=== PATIENT | female | born 1945 | race Caucasian/White ===

== ENCOUNTER → 2016-06-17 | Day surgery (SDC) | payer MEDICARE ==
[~2016-06-17] MED LIST: ACETAMINOPHEN/HYDROcodone 325 MG/5 MG TAB ONE; BACITRACIN IM FOR SOLN 50,000 UNIT VIAL ONE; BUPIVACAINE/EPINEPHRINE 0.25% PF 30 ML VIAL ONE; GENTAMICIN SULFATE 80 MG/2 ML VIAL ONE; KETOROLAC TROMETHAMINE 30 MG/ML (IVP) VIAL IV PUSH ONE; LACTATED RINGER'S 1000 ML INJ 1,000 ML ONE; MEPERIDINE HCL 25 MG/ML VIAL ONE; MIDAZOLAM HCL 2 MG/2 ML VIAL ONE; ONDANSETRON HCL 4 MG/2 ML VIAL IV PUSH ONE; PROPOFOL 200 MG/20 ML AMP IV ONE; SODIUM CHLOR 0.9% 250 ML INJ 250 ML IV ONE; SODIUM CHLORIDE 0.9% 20 ML VIAL ONE; VANCOMYCIN HCL 1000 MG VIAL ONE; ceFAZolin 2 GM PREMIX 50 ML ONE; ceFAZolin INJ 1,000 MG VIAL ONE
--- NOTE | 2016-06-17 10:19 | TN ---
cc: SO[facility] DATE OF SURGERY 06/17/2016 PREOPERATIVE DIAGNOSIS Right knee medial compartment osteoarthritis, chondromalacia patella. POSTOPERATIVE DIAGNOSIS Right knee medial compartment osteoarthritis, chondromalacia patella. PROCEDURE Right knee medial unicondylar arthroplasty, partial patellectomy SURGEON Francie Mcghee MD ASSESSMENT Luigi Mcghee MD, Betsy Wesley PA-C SPECIMENS None ESTIMATED BLOOD LOSS Minimal COMPLICATIONS None ANESTHESIA General DRAINS One TOURNIQUET TIME 49 minutes 250 mmHg CONDITION Stable PLAN OF ACTIVITY As per orders. PROCEDURE My studio assistant, Esvin Mcghee MD, was present for the entire surgical case. He was medically necessary for the entire case because of the complexity of the case and to facilitate the performance of the procedure. The BLOOD DONOR RECRUITER SUPERVISOR at the back table was not a skill set for this case to manipulate the instruments e.g. multiple different types of soft tissue retractors, trial implants, permanent plans including bone cement. The patient was brought into the operating room and had satisfactory general anesthesia by Dr. Fierro of the Department of Anesthesia. The right lower extremity was prepped and draped in the usual sterile manner. The extremity was exsanguinated by Rigoberto wrap. Tourniquet inflated to 250 mmHg. A small anterior medial exposure of the knee was made. Paramedian capsulotomy was performed. The patient found to have chondromalacia involving the medial facette of patella and severe arthritis involving the medial compartment. Partial patellectomy performed using an oscillating saw to remove the medial facette of the patella. The remaining portion of the medial meniscus removed. The medial fat pad was removed. The anterior cruciate ligament was preserved. Using the [employer] unicondylar arthroplasty system, the guide was used for the posterior condyle of the femur. Approximately 5 mm to 6 mm was removed. The proximal tibia was prepared with burs to accept a #1, 6.5 mm tibial component. The distal femur was prepared to accept a #1 right medial femoral component. Trial reduction was made. All trial components were inserted. Trial reduction was made. The patient was found to have satisfactory balance with flexion/extension. Medial femoral osteophytes were removed using rongeurs. All trial components were removed and preparation for cementing was made. Initially the tibial component #1, 6.5 mm tibial component was cemented and then followed by a #1 right medial femoral component. All excess bone cement was removed. The bone was allowed to harden for 13 minutes. The knee was injected with 50 cc of 0.25% Marcaine with epinephrine. The tourniquet was deflated. All bleeders were coagulated. The wound itself was dry. The wound was irrigated with copious amounts of sterile saline antibiotic solution. It was closed over an eighth inch Hemovac drain. The capsule was repaired with multiple #2 Tycron sutures. The subcuticular tissues closed in layers with 2-0 Vicryl and skin approximated with a running subcuticular 3-0 Vicryl. Benzoin and Steri-Strips were applied. The patient tolerated the procedure well and arrived in the recovery room in stable and satisfactory condition. MD ESTUARDO Raphael/ANGÉLICA /9:49 AM /10:08 AM
== END | disposition home or self-care (01) ==
LOC: ESDC 06:49
PROVIDERS: ATTEND Orthopaedic Surgery Orthopaedic Surgery of the Spine
DX: M17.11 Unilateral primary osteoarthritis, right knee (principal); M22.41 Chondromalacia patellae, right knee
CPT/HCPCS: C1776; J0690; J1580; J1885; J2175; J2250; J2405; J3010; J3370; J7050; J7120